=== PATIENT | female | born 1955 ===

== ENCOUNTER 2023-02-21 12:43 | Outpatient (CLI) | payer MEDICARE ==
--- NOTE | 2023-02-21 20:34 | DEXA Report ---
PROCEDURE: Dexa Spine and/or Hip INDICATIONS: POST MENOPAUSAL TECHNIQUE: Dual energy x-ray absorptiometry (DEXA) was performed in the regions detailed below. COMPARISON: None. FINDINGS: Lumbar Spine: Bone Mineral Density 1.005 g/cm/cm,T score -1.5. Osteopenia Left Femoral Neck: Bone Mineral Density 0.802 g/cm/cm, T score -1.7. Osteopenia Left Hip: Bone Mineral Density 0.804 g/cm/cm,T score -1.6. Osteopenia (T score greater or equal to -1.0: NORMAL) (T score from -1.1 to -2.4: OSTEOPENIA) (T score less than or equal to -2.5 to: OSTEOPOROSIS) IMPRESSION: Osteopenia Patients with diagnosis of osteoporosis or osteopenia should have regular bone mineral density assess ment. For those eligible for Medicare, routine testing is allowed once every 2 years. Testing frequ ency can be increased for patients who have rapidly progressing disease or for those who are receivin g medical therapy to restore bone mass. Reviewed by: Jasbir Hernandez MD on 02/21/2023 7:33 PM [facility] Approved by: Jasbir Hernandez MD on 02/21/2023 7:33 PM CORAL Station ID: [id number]
== END 2023-02-21 12:44 | disposition home or self-care (01) ==
LOC: DI 12:43
PROVIDERS: ATTEND Nurse Practitioner Acute Care
DX: Z78.0 Asymptomatic menopausal state (principal); M85.89 Other specified disorders of bone density and structure, multiple sites